=== PATIENT | female | born 1960 | race Caucasian/White ===

== ENCOUNTER → 2018-09-28 | Outpatient (CLI) | payer BC | LOC: FIMAGING 11:22 | PROVIDERS: ATTEND Orthopaedic Surgery | DX: M17.12 Unilateral primary osteoarthritis, left knee (principal) ==

== ENCOUNTER 2018-10-23 06:54 | Inpatient (IN) | payer BC, OTHER ==
--- NOTE | 2018-10-23 06:23 | PDHPUP ---
History & Physical Update H&P update statement: This history and physical update is based on an assessment of the patient which was completed after admission or registration (within 24 hours), but prior to the surgery/procedure. H&P update: H&P reviewed & patient examined, no change in patient's condition since H&P completed
[2018-10-23] MEDS ORDERED: TRANEXAMIC ACID 3,000 MG/50 ML BAG IRR ONE (07:10)
[2018-10-23] MEDS ORDERED: ceFAZolin 2 GM/DEXTROSE 100 ML IV ONE (07:24)
[2018-10-23] MEDS ORDERED: DEXAMETHASONE 4 MG/ML VIAL IVP ONE (07:24)
[2018-10-23] MEDS ORDERED: ACETAMINOPHEN 325 MG TAB PO ONE (07:24)
[2018-10-23] MEDS ORDERED: FAMOTIDINE 20 MG TAB PO ONE (07:24)
[2018-10-23] MEDS ORDERED: LR 1,000 ML IV ONE (07:25)
[2018-10-23] MEDS ORDERED: LIDOCAINE 1% 2 ML INJ ID PRN (07:25)
--- NOTE | 2018-10-23 07:48 | CPEKG ---
Test Reason : OPEN Blood Pressure : / mmHG Vent. Rate : 076 BPM Atrial Rate : 078 BPM P-R Int : 153 ms QRS Dur : 083 ms QT Int : 386 ms P-R-T Axes : 079 -35 065 degrees QTc Int : 435 ms Sinus rhythm Left axis deviation Low voltage, extremity leads Confirmed by Fede Pike ([id number]) on 10/23/2018 7:47:53 AM Referred By: Guerita Jerry Confirmed By:Fede Pike
[2018-10-23] MEDS ORDERED: VANCOMYCIN 1 GM VIAL ONE (07:55)
[2018-10-23] MEDS ORDERED: PROPOFOL/EMULSION 500 MG/50 ML BOTTLE IV ONE (08:04)
[2018-10-23] MEDS ORDERED: LIDOCAINE 2% 5 ML SDV ONE (08:05)
--- NOTE | 2018-10-23 08:12 | PDANEPAE ---
ANE History of Present Illness left knee OA for TKA ANE Past Medical History - Cardiovascular History Hx Hypertension: No Hx Arrhythmias: No Hx Chest Pain: No Hx Coronary Artery / Peripheral Vascular Disease: No Hx CHF / Valvular Disease: No Hx Palpitations: No - Pulmonary History Hx COPD: No Hx Asthma/Reactive Airway Disease: No Hx Recent Upper Respiratory Infection: No Hx Oxygen in Use at Home: No Hx Sleep Apnea: No Sleep Apnea Screening Result - Last Documented: Negative - Neurologic History Hx Cerebrovascular Accident: No Hx Seizures: No Hx Dementia: No Neurologic History Comment: hereditary spastic paraplegia. 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 adult acne. 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 bilateral carpal tunnel. 08/04/13 hernia repair with Loo. hysterectomy ANE Review of Systems Review of systems is: negative Review of Systems: - Exercise capacity METS (RN): 1 METS ANE Patient History - Allergies Allergies/Adverse Reactions: Penicillins Allergy (Verified 10/23/18 07:35) as a child- anaphylaxis - Home Medications Home medications: home medication list seen and reviewed Home Medications: Amitriptyline HCl [Elavil 10 mg (*)] 30 mg PO HS 10/10/18 [Last Taken 10/22/18 22:00] Baclofen [Baclofen 10 mg (*)] 10 mg PO TID 10/10/18 [Last Taken 10/23/18 06:30] DULoxetine [Cymbalta 60 MG (*)] 60 mg PO DAILY 10/10/18 [Last Taken 10/22/18 22: 00] Gabapentin [Neurontin 300 MG (*)] 300 mg PO TID 10/10/18 [Last Taken 10/22/18 22 :00] Nitrofurantoin Macrocrystal [Macrodantin 50 mg (*)] 50 mg PO HS 10/10/18 [Last Taken 10/22/18 21:30] - Smoking Hx Smoking Status: Never smoked - Family Anes Hx Family Hx Anesthesia Complications: none ANE Labs/Vital Signs - Vital Signs Height: 154.94 cm Weight: 48.534 kg ANE Physical Exam - Airway Neck exam: FROM Mallampati Score: Class 2 Mouth exam: normal dental/mouth exam - Pulmonary Pulmonary: no respiratory distress - Cardiovascular Cardiovascular: regular rate and rhythym - ASA Status ASA Status: II ANE Anesthesia Plan Anesthesia Plan: spinal Regional Anesthesia: single shot NB, adductor canal FNB
[2018-10-23] MEDS ORDERED: TRANEXAMIC ACID 3,000 MG in NS (SYRINGE) 50 ML IRR ONE (09:00)
[2018-10-23] MEDS ORDERED: ROPIVACAINE 0.2% 80 MG, EPINEPHrine 0.2 MG, KETOROLAC TROMETHAMINE 30 MG in SYRINGE 0 ML IU ONE (09:00)
[2018-10-23] MEDS ORDERED: BUPIVACAINE/DEXTROSE 7.5MG/ML 2 ML SPINAL AMP SP ONE (09:10)
[2018-10-23] MEDS ORDERED: ROPIVACAINE HCL 150 MG/30 ML INJ ONE (09:10)
[2018-10-23] MEDS ORDERED: fentaNYL 100 MCG/2 ML INJ ONE (09:37)
[2018-10-23] MEDS ORDERED: METOCLOPRAMIDE 10 MG/2 ML VIAL IVP PRN (09:46)
[2018-10-23] MEDS ORDERED: ONDANSETRON DISINTEGRATING 4 MG TAB PO PRN (09:46)
[2018-10-23] MEDS ORDERED: oxyCODONE IR 5 MG TAB PO PRN ×2 (09:46→09:54)
[2018-10-23] MEDS ORDERED: ONDANSETRON 4 MG/2 ML VIAL IVP PRN ×2 (09:46→09:54)
[2018-10-23] MEDS ORDERED: CYCLOBENZAPRINE 10 MG TAB PO PRN (09:46)
[2018-10-23] MEDS ORDERED: POLYETHYLENE GLYCOL 3350 17 GM PKT PO PRN (09:46)
[2018-10-23] MEDS ORDERED: PROMETHAZINE HCL 25 MG SUPPR PR PRN (09:46)
[2018-10-23] MEDS ORDERED: LACTULOSE 20 GM/30 ML UDCUP PO PRN (09:46)
[2018-10-23] MEDS ORDERED: DIPHENOXYLATE/ATROPINE LOMOTIL 1 TAB PO PRN (09:46)
[2018-10-23] MEDS ORDERED: TEMAZEPAM 15 MG CAP PO PRN (09:46)
[2018-10-23] MEDS ORDERED: MAGNESIUM HYDROXIDE 30 ML UDCUP PO PRN (09:46)
[2018-10-23] MEDS ORDERED: diphenhydrAMINE 25 MG CAP PO PRN (09:46)
[2018-10-23] MEDS ORDERED: BISACODYL 10 MG SUPP PR PRN (09:46)
[2018-10-23] MEDS ORDERED: PROMETHAZINE HCL 25 MG/ML INJ IVP PRN (09:46)
[2018-10-23] MEDS ORDERED: PHENYLEPHRINE HCL 100 MCG/ML SYR ONE (09:47)
--- NOTE | 2018-10-23 09:53 | POSTANESTH ---
Post Anesthetic Evaluation Cardiovascular Status: Normal, Stable Respiratory Status: Normal, Stable Level of Consciousness/Mental Status: Can Participate in Eval, Alert and Oriented Pain Control: Adequate, Prn Tx Ordered Nausea/Vomiting Control: Adequate, Prn Tx Ordered Complications Possibly Related to Anesthesia: None Noted
[2018-10-23] MEDS ORDERED: LR 500 ML IV PRN (09:54)
[2018-10-23] MEDS ORDERED: ALBUTEROL 3 ML DEYVIAL IH PRN (09:54)
[2018-10-23] MEDS ORDERED: NALOXONE HCL 0.4 MG/ML INJ IVP PRN (09:54)
[2018-10-23] MEDS ORDERED: fentaNYL 100 MCG/2 ML INJ IVP PRN (09:54)
[2018-10-23] MEDS ORDERED: HYDROCODONE/APAP 5/325 TAB PO PRN (09:54)
[2018-10-23] MEDS ORDERED: LR 1,000 ML IV SCH (10:00)
--- NOTE | 2018-10-23 10:53 | POSTOPPROG ---
Post Op Note Date of Operation: 10/23/18 Surgeon: Guerita Jeryr Workers Compensation Claims Examiner: Vonda Jerry and Jeanette Rodrigues PAC Anesthesiologist: Dr. Villegas Anesthesia: Spinal, Other (Specify) (adductor canal block) Pre-op Diagnosis: left knee OA Post-op Diagnosis: same Indication: left knee pain Procedure: left TKA, robot assisted Findings: severe OA of left knee Inf/Abcess present in the surg proc area at time of surgery?: No EBL: 50-100
[2018-10-23] MEDS ORDERED: BACLOFEN 10 MG TAB PO ONE (11:45)
[2018-10-23] MEDS: ACETAMINOPHEN 325 MG TAB PO SCH ×3 (12:41→19:24)
--- NOTE | 2018-10-23 13:16 | PDMN ---
Medical Necessity Medical necessity[place] [facility] [place]throplasty, Total, A-2 days: 57 yo sp L TKA , per PA pt status INPT as pt expected to stay>2 nights, pt is W/C bound for hereditary spastic paraplegia and will need additional PT. Pt may need additional support post op and pain control management.
[2018-10-23] MEDS: BACLOFEN 10 MG TAB PO SCH ×2 (15:15→21:57)
--- NOTE | 2018-10-23 16:32 | ASMTCMCOM ---
CM Note CM Note Notes: Pt had planned L TKA. Today PT rec home PT. Spoke with pt about this rec, she would be amenable to C if MD approves. Pt address/phone verified. Pt resides with her mother who can assist and sister is available to assist pt during recovery. CM to follow for d/c planning. Date Signed: 10/23/2018 04:32 PM Electronically Signed By:KWADWO Warren
[2018-10-23] MEDS: ceFAZolin 2 GM/DEXTROSE 100 ML IV SCH (16:35)
[2018-10-23] MEDS: GABAPENTIN 300 MG CAP PO SCH ×2 (16:35→21:58)
[2018-10-23] MEDS ORDERED: AMITRIPTYLINE HCL 10 MG TAB PO SCH (21:00)
[2018-10-23] MEDS ORDERED: NITROFURANTOIN 50 MG CAP PO SCH (21:00)
[2018-10-23] MEDS: FAMOTIDINE 20 MG TAB PO SCH (21:58)
[2018-10-23] MEDS: SENNOSIDES/DOCUSATE SODIUM TAB PO SCH (21:58)
[2018-10-23] MEDS: ASPIRIN 81 MG CHEWABLE TAB PO SCH (21:59)
[2018-10-24] MEDS: ceFAZolin 2 GM/DEXTROSE 100 ML IV SCH (00:36)
[2018-10-24] MEDS: ACETAMINOPHEN 325 MG TAB PO SCH ×2 (00:37→05:45)
[2018-10-24 08:22] VITALS: BP 145/94
[2018-10-24] MEDS: ASPIRIN 81 MG CHEWABLE TAB PO SCH (08:23)
[2018-10-24] MEDS: SENNOSIDES/DOCUSATE SODIUM TAB PO SCH (08:23)
[2018-10-24] MEDS: BACLOFEN 10 MG TAB PO SCH (08:23)
[2018-10-24] MEDS: FAMOTIDINE 20 MG TAB PO SCH (08:24)
[2018-10-24] MEDS: GABAPENTIN 300 MG CAP PO SCH (08:24)
--- NOTE | 2018-10-24 08:45 | SOAPPROG ---
SOAP Progress Note Assessment/Plan: Assessment: Patient is doing well POD 1 s/p LTKA Pain management: pain is well controlled on oral pain meds. VTE ppx: recommend 81 mg aspirin morning and evening for 4 weeks, cont MARIS and SCDs Anemia: level is expected initially postop. Asymptomatic. Continue to monitor D/c planning:patient has done much better than anticipated. Patient is stable, BP stable, pain well controlled and patient is eager for discharge to home. January d/c to home today pending release from PT Plan: 10/24/18 08:43 Subjective: No nausea, vomiting, shortness of breath, chest pain Objective: Vital Signs Temp Pulse Resp BP Pulse Ox 36.8 C 92 18 145/94 H 96 10/24/18 08:21 10/24/18 08:21 10/24/18 08:21 10/24/18 08:21 10/24/18 08:21 Laboratory Results 10/24/18 05:01 10/23/18 10/24/18 10/25/18 05:59 05:59 05:59 Intake Total 2100 Output Total 730 Balance 1370 LLE: incision dressing clean and dry, NVI, positive PF/DF ICD10 Worksheet Patient Problems: Problems Problem Status Onset Primary osteoarthritis of left knee Acute
[2018-10-24] MEDS ORDERED: DULoxetine 60 MG CAP PO SCH (09:00)
--- NOTE | 2018-10-24 10:19 | PDIAF ---
- Diagnosis Diagnosis: s/p L TKA Code Status: Full Code - Medication Management Discharge Medications: electronically signed and located in the Home Medication List. - Orders Services needed: Certified Environmental Manager, Physical Therapy, Occupational Therapy Home Care Face to Face: yes Diet Recommendation: no restrictions on diet Diet Texture: Regular Texture Diet Equipment: patient uses wheelchair prior to surgery Additional Instructions: Joint Protocol-Knee Replacement Follow up with Dr. Cade office as scheduled You received an adductor canal block yesterday. This covers a significant portion of the pain in the knee. When the numbness to your anterior shins is no longer there, the pain will worsen. If you have not already started taking narcotic pain medications, we recommend starting today even just half a pill at a time so that it is not a surprise when the nerve block wears off today. After surgery instructions: Take Aspirin 81mg by mouth twice daily for 4 weeks (helps to prevent blood clots ) Wear thigh high MARIS hose on both legs during the daytime for 2 weeks (helps to prevent blood clots and decrease swelling in the surgical leg). It is ok to remove MARIS hose at night time to give your legs a break. It is common for swelling and bruising to occur in the entire surgical leg even extending to the foot, if concerned call Dr. Peters office [phone] Elevate the surgical leg with the ankle above the hip several times a day. ~ Ideally anytime you are resting throughout the day. Attempt to keep the knee straight while elevating by placing pillows under the ankle instead of the knee to elevate. This may be painful, so please do as much as tolerated. ~This will help you achieve full knee extension. Use a walker for 7-14 days Start outpatient physical therapy in 7-10 days Wear an jennifer wrap on the knee for 3-4 days after surgery, then it is no longer needed Do exercises in the book 2-3 times a day Ice at least 3-5 times a day for 30 minutes each time, if not more often. ~~We also recommend using the ice machine before falling asleep to help with pain If you have further questions that are not addressed here, please look at the information packet handed to you at the preop appointment. ~Most will be answered on the FAQs, after surgery instructions and incision care pages. *IF YOU HAVE A LIFE THREATENING EMERGENCY, CALL 911. FOR NON-LIFE THREATENING ISSUES, PLEASE CALL DR. CADE OFFICE FIRST. A PHYSICIAN IS TRUCK GREASER 26/03. Incision/Dressing Care: May shower tomorrow, do not submerge in water. you do not have to cover the incision dressing for showers Keep the incision (hill) dressing clean and dry. If the incision dressing gets soiled or wet underneath, change dressing to the dressing given to you by the hospital. (hill dressing will turn black if drainage occurs) Remove incision dressing (hill one) two weeks after surgery. ~Leave steri strips alone. ~They will fall off on their own. Do not have anyone else remove the incision dressing prior to the stated recommendation (2 weeks after surgery). ~If there are incision concerns, contact Dr. Peters office. ~(Vonda or Dr. Jerry may remove earlier if concerns arise) If incision site (hill dressing) has drainage call Dr. Peters office, [phone]. ~Vonda and Dr. Jerry may ask you to come into the office for further evaluation - Follow Up Care Current Providers and Referrals: Jacqueline Rodrigues PAC [Physician C.O.D. [facility]] - 11/12/18 9:30 am Christopher Mckeon MD [Primary Care Provider] -
--- NOTE | 2018-10-24 10:21 | PDFACE2FAC ---
Face to Face Encounter 1. I certify that this patient is under my care and that I, or a nurse practitioner or physician's facility assistant working with me, had a [id number] encounter that meets the physician [id number] encounter requirements with this patient on 10/24/18. 2. I certify that based on my findings, the following services are medically necessary home health services: [X Nursing] [X Physical Therapy] [ Speech-Language Pathology] 3. The medical condition and clinical findings that support the need for specialized skills, knowledge and judgement of the above services are: [s/p L TKA. wheelchair bound prior to surgery] 4. I certify this patient is homebound* because [the patient's condition restricts their ability to leave their home except with the assistance of another individual or the aid of a supportive device.] patient uses a wheelchair prior to surgery. s/p L TKA I certify that this patient is confined to his/her home and needs intermittent fpc care, physical and/or speech therapy. This patient is under my care and I have authorized home health services. * Homebound is defined by Medicare as follows: absences from home require considerable and tacking effort and or for medical reasons or denominational services or are infrequent or of short duration when for other reasons*.
--- NOTE | 2018-10-24 14:06 | ASMTCMCOM ---
CM Note CM Note Notes: Pt medically stable for d/c with [facility], [facility]. Pt has transport home. Date Signed: 10/24/2018 02:05 PM Electronically Signed By:KWADWO Warren
--- NOTE | 2018-10-24 14:07 | ASMTLACE ---
LACE Length of stay for Answers: 2 days current admission Acuity / Level of Answers: Yes Care: Did the patient have an inpatient admission? Comorbidities - select Answers: Opioid dependence all that apply / Chronic pain Other Notes: Chronic UTIs # of Emergency department Answers: 0 visits in the last 6 months Score: 10 Date Signed: 10/24/2018 02:06 PM Electronically Signed By:KWADWO Warren
--- NOTE | 2018-10-24 14:32 | ASDISCHSUM ---
Discharge Information Plan Status:Home with Home Health Medically Cleared to Leave: Discharge Date:10/24/2018 11:39 AM CM D/C Disposition: ADT D/C Disposition:Home, Routine, Self-Care Projected Discharge Date:10/24/2018 11:00 AM Transportation at D/C: Discharge Delay Reason: Follow-Up Date:10/24/2018 11:00 AM Discharge Slot: Final Diagnosis: Placement Information Referral Type:*Home Health Care Services Referral ID:[id number] Provider Name:[facility] Address 1:[address] Address 2: City:[place] Selection Factors: State:[place] Patient Contact Information Contact Name:KARLOSVIKTOR Relationship: Address:[address] City:[facility] Alternate Phone: State/Zip Code:[place] [address] Email: Financial Information Financial Class:BCOP Primary Plan Desc:BC OUT OF STATE PPO Primary Plan Number:[id number] Secondary Plan Desc: Secondary Plan Number: Assessment Information [facility] CM Progress Note CM Note CM Note Notes: Pt had planned L TKA. Today PT rec home PT. Spoke with pt about this rec, she would be amenable to [facility] if MD approves. Pt address/phone verified. Pt resides with her mother who can assist and sister is available to assist pt during recovery. CM to follow for d/c planning. Date Signed: 10/23/2018 04:32 PM Electronically Signed By:KWADWO Warren LACE LACE Length of stay for Answers: 2 days current admission Acuity / Level of Answers: Yes Care: Did the patient have an inpatient admission? Comorbidities - select Answers: Opioid dependence all that apply / Chronic pain Other Notes: Chronic UTIs # of Emergency department Answers: 0 visits in the last 6 months Score: 10 Date Signed: 10/24/2018 02:06 PM Electronically Signed By:KWADWO Warren BC CM Progress Note CM Note CM Note Notes: Pt medically stable for d/c with [facility], orders to be obtained via [facility]. Pt has transport home. Date Signed: 10/24/2018 02:05 PM Electronically Signed By:KWADWO Warren Intervention Information
--- NOTE | 2018-10-28 10:46 | GDS ---
[f rep st] DISCHARGE SUMMARY ADMISSION DIAGNOSIS: Left knee osteoarthritis. DISCHARGE DIAGNOSIS: Left knee osteoarthritis. PROCEDURE: Left total knee arthroplasty, robotic assisted. VTE PROPHYLAXIS: Recommend aspirin 8I mg twice daily for 4 weeks. BRIEF DESCRIPTION OF HOSPITAL STAY: Patient was admitted for an elective joint arthroplasty. The pat ient tolerated the procedure well and has passed physical therapy. The patient was given appropriate antibiotic prophylaxis and venous thromboembolism prophylaxis. The patient's pain was well controlled on oral pain medication, patient was holding down food, and had urinated. Decision was made to disch arge the patient. The patient was given post-operative prescriptions pre-operatively. PLAN: To follow up as scheduled with Dr. Jerry's office, November 12 at 9:30 a.m. /[id number]/MODL
--- NOTE | 2018-10-29 08:54 | GOP ---
[f rep st] OPERATIVE REPORT DATE OF OPERATION: 10/23/2018 SURGEON: Alexander Jerry MD SERVICE CAR OPERATOR: 1. PETER Wagner. 2. PETER Ye. ANESTHESIA: Spinal. PREOPERATIVE DIAGNOSIS: Left knee osteoarthrosis. POSTOPERATIVE DIAGNOSIS: Left knee osteoarthrosis. PROCEDURE PERFORMED: Left total knee arthroplasty with computer navigation, robotic assist. FINDINGS: ESTIMATED BLOOD LOSS: 30 cc. INDICATIONS: The patient is a 57-year-old female with severe and progressive pain and deformity of t he left knee unresponsive to conservative care. The risks and benefits of surgical intervention were explained in detail. DESCRIPTION OF PROCEDURE: The patient was brought to the operative room and placed on the table in t he supine position. Spinal anesthesia was induced without difficulty. A pneumatic tourniquet was appl ied about the left proximal thigh, and the leg was prepped and draped in a sterile fashion. The leg h older was applied. After exsanguination by elevation the tourniquet was inflated to 250 mmHg. Incision was made anterior medial from the tibial tuberosity to a point 2 cm proximal to the superior pole of the patella. Medial parapatellar arthrotomy was carried out from the superior pole of the pa tella and posteriorly in line with the fibers of the Type II VMO. The medial collateral ligament was elevated and the infrapatellar fat pad was resected. The patella was everted and the articular surface was excised. A 32 mm patellar button was placed. Attention was turned first to the distal aspect of the femur. After exposure of the femur, 2 half pi ns were placed for fixation of the femoral array. In a similar fashion, 2 pins were placed anteromed ial on the tibia for fixation of the tibial array. External land marking and registration of the hip center was performed without difficulty. Internal femoral and tibial registration was carried out w ithout difficulty and the femoral and tibial checkpoints were placed and verified for accuracy. Attention was turned to the femur. The foot print for the size 3 femoral component was cut with the saw using the [employer] robotic system and verified for accuracy against the CT based plan. In a similar f ashion, the saw was used to cut the footprint for the size 2 tibial component using the IRON system an d verified for accuracy against the CT based plan. The tibial articular surface was excised without d ifficulty, followed by the intercondylar box cut. The knee was extended and the remnants of the medial and lateral meniscus were excised. The posterior capsule was injected with ropivacaine, epinephrine and Toradol. A size 2 tibial tray was positioned . Trial reduction was then carried out. There was excellent range of motion, alignment, and stability using the 2 x 9 mm polyethylene. All trials were then removed. The joint was thoroughly irrigated and carefully dried. The cemented co mponents were implanted. The permanent 2 x 9 mm polyethylene was placed without difficulty. The tourniquet was deflated and all bleeders were coagulated. The wound was thoroughly irrigated and closed using interrupted sutures of 2-0 Vicryl for the joint capsule. The subcu was closed with 3-0 V icryl and the skin with 4-0 Monocryl. Dermabond and Steri-Strips were applied followed by a compress kyle dressing. The patient was then moved from the operating room to the recovery room in good conditi on, having tolerated the procedure well. PATHOLOGY: Severe lateral and patellofemoral osteoarthritis. /[id number]/MODL
== END 2018-10-24 11:39 | disposition home or self-care (01) | DRG 470 ==
LOC: F3N 06:54
PROVIDERS: ADMIT Orthopaedic Surgery; ATTEND Orthopaedic Surgery
DX: M17.12 Unilateral primary osteoarthritis, left knee (principal)
CPT/HCPCS: 97110-GP; 97162-GP; 97166-GO; 97530-GP; C1713; J0171; J0690; J1100; J1885; J2370; J2550; J2704; J2795; J3010; J3370

== ENCOUNTER 2019-02-15 13:22 | Emergency (ER) | payer BC, OTHER | END 2019-02-15 17:04 | disposition home or self-care (01) ==

== ENCOUNTER 2019-02-19 12:47 | Inpatient (IN) | payer BC, OTHER | END 2019-02-20 12:00 | disposition home health service (06) | LOC: F3N 12:47 → FOB 18:10 ==